=== PATIENT | male | born 1940 | race Caucasian/White ===

== ENCOUNTER → 2020-06-17 | Outpatient (CLI) | payer BC, MEDICARE ==
[~2020-06-17] VITALS: Ht 180.3 cm; Wt 102.1 kg
[~2020-06-17] MED LIST: ALDACTONE100 MG PO; ALLEGRA ALLERG180 MG PO; ALPRAZOLAM0.5 MG PO; AMBIEN10 MG PO; ATENOLOL25 MG PO; B-121000 MCG PO; CHRONULAC20 GM/30 M PO; DAILY-VITE1 EACH PO; DRAMAMINE25 MG PO; FLUZONE QU60 MCG/018 IM; FOLIC ACID 1 MG1 MG PO; GAS-X125 MG PO; GINGER ROOT550 MG PO; HYDROCODON-ACE1 EAC4 PO; LASIX 40 MG TAB40 MG PO; LEVOFLOXACIN500 MG PO; MAXZIDE 37.5/21 EACH PO; NAUZENE TABLET1 EACH PO; ONDANSETRON HCL4 MG PO; POTASSIUM99 M1 PO; PROTONIX 40 MG40 M1 PO; ROXICODONE TAB 55 MG PO; TRAMADOL HCL50 MG PO; VIACTIV 650 MG1 EACH PO; VITAMIN D3125 MCG PO; VITAMIN E400 UNI1 PO; XIFAXAN 550 MG550 MG PO
== END ==
LOC: OPSV 07:39
PROC: 0W9G3ZZ Drainage of Peritoneal Cavity, Percutaneous Approach (ICD-10-PCS; principal; 2020-06-17)
DX: K70.31 Alcoholic cirrhosis of liver with ascites (principal); D50.9 Iron deficiency anemia, unspecified
CPT/HCPCS: 36430; 96367; 96375; J1940; J7050; P9016; P9047

== ENCOUNTER 2020-06-30 01:03 | Emergency (ER) | payer BC, MEDICARE ==
[~2020-06-30 01:03] MED LIST changes: -ALDACTONE100 MG PO; -ALPRAZOLAM0.5 MG PO; -DAILY-VITE1 EACH PO; -FOLIC ACID 1 MG1 MG PO; -HYDROCODON-ACE1 EAC4 PO; -LASIX 40 MG TAB40 MG PO; -MAXZIDE 37.5/21 EACH PO; -ROXICODONE TAB 55 MG PO; -VIACTIV 650 MG1 EACH PO; -VITAMIN D3125 MCG PO
[2020-07-22] MEDS ORDERED: FOLIC ACID 1 MG1 MG PO (14:53)
[2020-08-06] MEDS ORDERED: MAXZIDE 37.5/21 EACH PO (14:53)
[2020-09-05] MEDS ORDERED: ALDACTONE100 MG PO (14:19)
[2020-09-05] MEDS ORDERED: LASIX 40 MG TAB40 MG PO (14:43)
== END 2020-06-30 02:10 | disposition home or self-care (01) ==
LOC: ER1 01:03
DX: S09.90XA Unspecified injury of head, initial encounter (principal); S41.112A Laceration without foreign body of left upper arm, initial encounter; S41.111A Laceration without foreign body of right upper arm, initial encounter; S51.812A Laceration without foreign body of left forearm, initial encounter; S51.811A Laceration without foreign body of right forearm, initial encounter; S00.31XA Abrasion of nose, initial encounter; I10 Essential (primary) hypertension; I48.91 Unspecified atrial fibrillation; Z87.19 Personal history of other diseases of the digestive system; Z88.0 Allergy status to penicillin; W18.09XA Striking against other object with subsequent fall, initial encounter; Y92.009 Unspecified place in unspecified non-institutional (private) residence as the place of occurrence of the external cause
CPT/HCPCS: 70450; 72125; 99284

== ENCOUNTER 2020-07-04 14:51 | Emergency (ER) | payer BC, MEDICARE ==
[2020-07-04 18:06] LABS: HEMOGLOBIN 7.6 gm/dl (14.0-17.5); RED BLOOD COUNT 2.59 M/UL (4.20-5.50); WHITE BLOOD COUNT 3.9 K/UL (4.5-11.0)
[2020-07-04 18:30] LABS: BUN/CREATININE RATIO 28 (0-10)
[2020-07-22] MEDS ORDERED: FOLIC ACID 1 MG1 MG PO (14:53)
[2020-08-06] MEDS ORDERED: MAXZIDE 37.5/21 EACH PO (14:53)
[2020-09-05] MEDS ORDERED: ALDACTONE100 MG PO (14:19)
[2020-09-05] MEDS ORDERED: LASIX 40 MG TAB40 MG PO (14:43)
== END 2020-07-05 03:10 | disposition home or self-care (01) ==
LOC: ER1 14:51
PROVIDERS: Physician Assistant Medical
DX: D61.818 Other pancytopenia (principal); I10 Essential (primary) hypertension; I48.91 Unspecified atrial fibrillation; Z87.19 Personal history of other diseases of the digestive system; Z88.0 Allergy status to penicillin
CPT/HCPCS: 36430; 80053; 85025; 85610; 86850; 86900; 86901; 86920; 99283; P9016

== ENCOUNTER 2020-07-18 13:01 | Emergency (ER) | payer BC, MEDICARE ==
[2020-07-18 15:32] LABS: HEMOGLOBIN 9.7 gm/dl (14.0-17.5); RED BLOOD COUNT 3.37 M/UL (4.20-5.50); WHITE BLOOD COUNT 4.1 K/UL (4.5-11.0)
[2020-07-18 15:53] LABS: BUN/CREATININE RATIO 26 (0-10)
[2020-07-22] MEDS ORDERED: FOLIC ACID 1 MG1 MG PO (14:53)
[2020-08-06] MEDS ORDERED: MAXZIDE 37.5/21 EACH PO (14:53)
[2020-09-05] MEDS ORDERED: ALDACTONE100 MG PO (14:19)
[2020-09-05] MEDS ORDERED: LASIX 40 MG TAB40 MG PO (14:43)
== END 2020-07-19 01:00 | disposition short-term general hospital (02) ==
LOC: ER1 13:01
PROVIDERS: Physician Assistant
DX: E87.1 Hypo-osmolality and hyponatremia (principal); R18.8 Other ascites; K74.60 Unspecified cirrhosis of liver; I10 Essential (primary) hypertension; Z90.49 Acquired absence of other specified parts of digestive tract; Z88.0 Allergy status to penicillin
CPT/HCPCS: 70450; 71045; 80053; 81001; 82140; 83690; 85025; 85610; 85730; 99285

== ENCOUNTER 2020-08-22 07:40 | Emergency (ER) | payer BC, MEDICARE ==
[~2020-08-22 07:40] MED LIST changes: +FOLIC ACID 1 MG1 MG PO; +MAXZIDE 37.5/21 EACH PO
[2020-08-22 08:17] LABS: WHITE BLOOD COUNT 3.9 K/UL (4.5-11.0)
[2020-08-22 08:38] LABS: HEMOGLOBIN 7.1 gm/dl (14.0-17.5)
[2020-08-22 08:39] LABS: RED BLOOD COUNT 2.69 M/UL (4.20-5.50)
[2020-08-22 08:50] LABS: BUN/CREATININE RATIO 24 (0-10)
[2020-08-22] MEDS ORDERED: ROXICODONE TAB 55 MG PO (11:55)
[2020-09-05] MEDS ORDERED: ALDACTONE100 MG PO (14:19)
[2020-09-05] MEDS ORDERED: LASIX 40 MG TAB40 MG PO (14:43)
== END 2020-08-22 12:15 | disposition home or self-care (01) ==
LOC: ER1 07:40
PROVIDERS: Emergency Medicine
DX: S22.32XA Fracture of one rib, left side, initial encounter for closed fracture (principal); I48.91 Unspecified atrial fibrillation; K62.5 Hemorrhage of anus and rectum; D61.818 Other pancytopenia; N28.9 Disorder of kidney and ureter, unspecified; Z87.19 Personal history of other diseases of the digestive system; Z23 Encounter for immunization; W01.0XXA Fall on same level from slipping, tripping and stumbling without subsequent striking against object, initial encounter; Y92.009 Unspecified place in unspecified non-institutional (private) residence as the place of occurrence of the external cause
CPT/HCPCS: 70450; 71111; 73060; 73080; 73090; 80053; 82270; 85025; 85610; 85730; 86850; 86900; 86901; 86920; 90471; 90714; 96374; 96375; 99284; 99285; J2270; J2405; J7030; J7040; J7050; Q9965

== ENCOUNTER 2020-09-05 20:03 | Emergency (ER) | payer BC, MEDICARE ==
[~2020-09-05 20:03] MED LIST changes: +ALDACTONE100 MG PO; +LASIX 40 MG TAB40 MG PO; +ROXICODONE TAB 55 MG PO
[2020-09-05] MEDS ORDERED: ALPRAZOLAM0.5 MG PO (20:17)
[2020-09-05 21:10] LABS: BUN/CREATININE RATIO 26 (0-10)
[2020-09-05 21:14] LABS: RED BLOOD COUNT 3.26 M/UL (4.20-5.50); WHITE BLOOD COUNT 4.2 K/UL (4.5-11.0)
[2020-09-05] MEDS ORDERED: HYDROCODON-ACE1 EAC4 PO (21:52)
[2020-09-06] MEDS ORDERED: VITAMIN D3125 MCG PO (14:27)
[2020-09-06] MEDS ORDERED: DAILY-VITE1 EACH PO (15:02)
[2020-09-06] MEDS ORDERED: VIACTIV 650 MG1 EACH PO (15:02)
== END 2020-09-05 22:16 | disposition home or self-care (01) ==
LOC: ER1 20:03
PROVIDERS: Preventive Medicine Occupational Medicine
DX: E86.0 Dehydration (principal); R10.9 Unspecified abdominal pain; I10 Essential (primary) hypertension; Z88.0 Allergy status to penicillin
CPT/HCPCS: 71045; 80053; 81001; 85025; 85652; 87086; 93005; J2250

== ENCOUNTER 2020-09-06 07:58 | Inpatient (IN) | payer BC, MEDICARE ==
[~2020-09-06] VITALS: Ht 177.8 cm; Wt 86.7 kg
[~2020-09-06 07:58] MED LIST changes: +ALPRAZOLAM0.5 MG PO; +HYDROCODON-ACE1 EAC4 PO
[2020-09-06 08:55] LABS: HEMOGLOBIN 8.5 gm/dl (14.0-17.5); RED BLOOD COUNT 3.1 M/UL (4.20-5.50); WHITE BLOOD COUNT 3.7 K/UL (4.5-11.0)
[2020-09-06] MEDS ORDERED: VITAMIN D3125 MCG PO (14:27)
[2020-09-06] MEDS ORDERED: VIACTIV 650 MG1 EACH PO (15:02)
[2020-09-06] MEDS ORDERED: DAILY-VITE1 EACH PO (15:02)
[2020-09-07 04:48] LABS: HEMOGLOBIN 8.1 gm/dl (14.0-17.5); RED BLOOD COUNT 2.93 M/UL (4.20-5.50); WHITE BLOOD COUNT 4.5 K/UL (4.5-11.0)
[2020-09-07 05:02] LABS: BUN/CREATININE RATIO 26 (0-10)
[2020-09-07 12:39] LABS: BODY FLUID SOURCE ASCITES
[2020-09-07 12:40] LABS: RBC (AUTOMATED) 700 (0-100000); WBC (AUTOMATED) 90 (0-500)
--- NOTE | 2020-09-07 14:35 | NUR ---
B/P 91/45
[2020-09-08 04:25] LABS: HEMOGLOBIN 7.1 gm/dl (14.0-17.5); WHITE BLOOD COUNT 3.4 K/UL (4.5-11.0)
[2020-09-08 04:30] LABS: RED BLOOD COUNT 2.59 M/UL (4.20-5.50)
[2020-09-08 04:45] LABS: BUN/CREATININE RATIO 25 (0-10)
[2020-09-09 08:17] LABS: HEMOGLOBIN 8.5 gm/dl (14.0-17.5)
[2020-09-09 08:18] LABS: RED BLOOD COUNT 3.08 M/UL (4.20-5.50); WHITE BLOOD COUNT 4.4 K/UL (4.5-11.0)
[2020-09-09 08:56] LABS: BUN/CREATININE RATIO 26 (0-10)
[2020-09-09] MEDS ORDERED: HYDROCODON-ACE1 EAC4 PO (12:25)
--- NOTE | 2020-09-09 17:30 | NUR ---
HOSPICE NURSE CALLED REPORT
== END 2020-09-09 14:00 | DRG 432 ==
LOC: ER1 07:58 → PROG CARE 11:42 → CDU 11:42 → PROG CARE 17:40 → CDU 17:40 → PROG CARE 17:40
PROVIDERS: Emergency Medicine; Internal Medicine; Physician Assistant Medical; ADMIT Family Medicine
PROC: 0W9G3ZX Drainage of Peritoneal Cavity, Percutaneous Approach, Diagnostic (ICD-10-PCS; principal; 2020-09-07)
DX: K70.31 Alcoholic cirrhosis of liver with ascites (principal); K72.00 Acute and subacute hepatic failure without coma; D61.818 Other pancytopenia; E87.1 Hypo-osmolality and hyponatremia; E87.2 Acidosis; D50.9 Iron deficiency anemia, unspecified; Z20.822 Contact with and (suspected) exposure to COVID-19; I25.10 Atherosclerotic heart disease of native coronary artery without angina pectoris; M19.90 Unspecified osteoarthritis, unspecified site; E11.9 Type 2 diabetes mellitus without complications; Z51.5 Encounter for palliative care; I10 Essential (primary) hypertension; I48.91 Unspecified atrial fibrillation; I95.9 Hypotension, unspecified; W19.XXXD Unspecified fall, subsequent encounter; N62 Hypertrophy of breast; R29.6 Repeated falls; G47.00 Insomnia, unspecified; F10.21 Alcohol dependence, in remission; Z83.3 Family history of diabetes mellitus; Z90.49 Acquired absence of other specified parts of digestive tract; Z87.891 Personal history of nicotine dependence; Z88.0 Allergy status to penicillin; Z79.899 Other long term (current) drug therapy; Z80.0 Family history of malignant neoplasm of digestive organs; Z91.81 History of falling; S22.39XD Fracture of one rib, unspecified side, subsequent encounter for fracture with routine healing
CPT/HCPCS: 36415; 36600; 51702; 70450; 71045; 80048; 80053; 80307; 81001; 82140; 82803; 83605; 83735; 84100; 84484; 85018; 85025; 85027; 85652; 87040; 87070; 87086; 87205; 89051; 93005; 97110-GP-CQ; 97116-GP-CQ; 97161; 97166; 97535; 99284; 99285; C1729; J2250; J7030; P9047; U0002